=== PATIENT | female | born 1975 | race Caucasian/White ===

== ENCOUNTER → 2020-04-01 16:00 | Outpatient (CLI) | payer OTHER, SELFPAY ==
--- NOTE | ~2020-04-01 | MM_ITS ---
EXAMINATION: MM screening [facility] BI w jodee HISTORY: Screening mammogram TECHNIQUE: Craniocaudal and mediolateral oblique 3-D tomosynthesis images were obtained and synthetic 2-D images were generated. CAD analysis was submitted and interpreted. COMPARISON: 01/25/2019, 12/10/2016, 10/15/2014 BREAST PARENCHYMAL COMPOSITION: There are scattered areas of fibroglandular density. FINDINGS: There is no evidence of suspicious mass, calcification, or architectural distortion to sugg est malignancy in either breast. There has been no suspicious interval change. IMPRESSION: 1. No mammographic evidence of malignancy. 2. Recommend routine screening mammography in one year. BI-RADS Category 1: Negative Reviewed, dictated and finalized at location A. GRINDING MACHINE OPERATOR
== END ==
PROVIDERS: PCP Family Medicine; Visit Provider Obstetrics & Gynecology Gynecology
DX: Z12.31 Encounter for screening mammogram for malignant neoplasm of breast (principal)
CPT/HCPCS: 77063; 77067

== ENCOUNTER → 2021-04-03 07:11 | Outpatient (CLI) | payer OTHER, SELFPAY ==
--- NOTE | ~2021-04-03 | MM_ITS ---
EXAMINATION: MM [facility] w jodee HISTORY: Screening mammogram TECHNIQUE: Craniocaudal and mediolateral oblique 3-D tomosynthesis images were obtained and synthetic 2-D images were generated. Bilateral rotated lateral cc views. CAD analysis was submitted and interp reted. COMPARISON: 04/01/2020, 01/25/2019, 12/10/2016 bilateral screening mammogram examinations BREAST PARENCHYMAL COMPOSITION: There are scattered areas of fibroglandular density. FINDINGS: There is no evidence of suspicious mass, calcification, or architectural distortion to sugg est malignancy in either breast. There has been no suspicious interval change. IMPRESSION: 1. No mammographic evidence of malignancy. 2. Recommend routine screening mammography in one year. BI-RADS Category 1: Negative Reviewed, dictated and finalized at location A. UET PREP COOK
== END ==
PROVIDERS: PCP Family Medicine; Visit Provider Obstetrics & Gynecology Gynecology
DX: Z12.31 Encounter for screening mammogram for malignant neoplasm of breast (principal)
CPT/HCPCS: 77063; 77067

== ENCOUNTER → 2022-04-12 14:54 | Outpatient (CLI) | payer OTHER, SELFPAY ==
--- NOTE | ~2022-04-12 | MM_ITS ---
EXAMINATION: MM screening [facility] w jodee HISTORY: Screening mammogram TECHNIQUE: Craniocaudal, rotated lateral craniocaudal and mediolateral oblique 3-D tomosynthesis imag es were obtained and synthetic 2-D images were generated. CAD analysis was submitted and interpreted. COMPARISON: 04/03/2021, 04/01/2020, 01/25/2019 bilateral screening mammogram examinations BREAST PARENCHYMAL COMPOSITION: There are scattered areas of fibroglandular density. FINDINGS: There is no evidence of suspicious mass, calcification, or architectural distortion to sugg est malignancy in either breast. There has been no suspicious interval change. IMPRESSION: 1. No mammographic evidence of malignancy. 2. Recommend routine screening mammography in one year. BI-RADS Category 1: Negative Reviewed, dictated and finalized at location A. ERY STACKER
== END ==
PROVIDERS: PCP Family Medicine; Visit Provider Obstetrics & Gynecology Gynecology
DX: Z12.31 Encounter for screening mammogram for malignant neoplasm of breast (principal)
CPT/HCPCS: 77063; 77067

== ENCOUNTER → 2023-06-30 07:06 | Outpatient (CLI) | payer OTHER, SELFPAY ==
--- NOTE | ~2023-06-30 | MM_ITS ---
EXAMINATION: MM [facility] w jodee HISTORY: Screening mammogram TECHNIQUE: Craniocaudal and mediolateral oblique 3-D tomosynthesis images were obtained and synthetic 2-D images were generated. CAD analysis was submitted and interpreted. COMPARISON: 04/12/2022, 04/03/2021, 04/01/2020 bilateral screening mammogram examinations BREAST PARENCHYMAL COMPOSITION: There are scattered areas of fibroglandular density. FINDINGS: There is no evidence of suspicious mass, calcification, or architectural distortion to sugg est malignancy in either breast. There has been no suspicious interval change. IMPRESSION: 1. No mammographic evidence of malignancy. 2. Recommend routine screening mammography in one year. BI-RADS Category 1: Negative Reviewed, dictated and finalized at location A. S RIBBON MACHINE OPERATOR
== END ==
PROVIDERS: PCP Obstetrics & Gynecology Gynecology; Visit Provider Obstetrics & Gynecology Gynecology
DX: Z12.31 Encounter for screening mammogram for malignant neoplasm of breast (principal)
CPT/HCPCS: 77063; 77067

== ENCOUNTER 2024-09-13 07:11 | Outpatient (CLI) | payer OTHER, SELFPAY ==
--- NOTE | ~2024-09-13 | MM_ITS ---
EXAMINATION: MM screening [facility] w jodee HISTORY: Screening TECHNIQUE: Craniocaudal and mediolateral oblique 3-D tomosynthesis images were obtained and synthetic 2-D images were generated. CAD analysis was submitted and interpreted. COMPARISON: Comparison to multiple prior studies sequentially, with oldest reviewed study dated 09/2018. BREAST PARENCHYMAL COMPOSITION: Not dense: There are scattered areas of fibroglandular density. FINDINGS: There is developing asymmetry/architectural distortion upper outer quadrant of the left destinee ast. The right breast is stable without evidence for malignancy. IMPRESSION: 1. Developing asymmetry/architectural distortion upper outer quadrant of the left breast. 2. Additional mammographic views and possible breast ultrasound are recommended. BI-RADS Category 0: Incomplete: Needs additional imaging evaluation. Reviewed, dictated and finalized at location A. IMPRESSION: 1. Developing asymmetry/architectural distortion upper outer quadrant of the le ft breast. 2. Additional mammographic views and possible breast ultrasound are recommended . BI-RADS Category 0: Incomplete: Needs additional imaging evaluation.
== END 2024-09-13 07:12 | disposition home or self-care (01) ==
LOC: MICIMG 07:11
PROVIDERS: PCP Family Medicine; Visit Provider Obstetrics & Gynecology Gynecology
DX: Z12.31 Encounter for screening mammogram for malignant neoplasm of breast (principal); R92.8 Other abnormal and inconclusive findings on diagnostic imaging of breast
CPT/HCPCS: 77063; 77067

== ENCOUNTER 2024-10-02 09:12 | Outpatient (CLI) | payer OTHER, SELFPAY ==
--- NOTE | ~2024-10-02 | MMUS_ITS ---
EXAMINATION: MM [facility] LT w jodee, US breast LT limited HISTORY: Left breast asymmetry TECHNIQUE: Additional 3-D tomosynthesis images of the left breast were performed and synthetic 2-D im ages were generated. CAD analysis was submitted and interpreted. High resolution limited left breast ultrasound was performed. COMPARISON: 09/13/2024, 06/30/2023, 04/12/2022 BREAST PARENCHYMAL COMPOSITION:Not Dense. There are scattered areas of fibroglandular density. FINDINGS: MAMMOGRAPHIC FINDINGS: Spot compression views there is a persistent architectural distortion at the upper, outer left breast . This is more pronounced as compared to prior exams. ULTRASOUND: At the 12:00 position left breast, 8 cm from the nipple, there is a 1.8 x 0.8 x 1.6 cm irregular mass , taller than wide. There is an additional adjacent 3 mm more round probable cyst. At the 1:00 positi on, 7 cm from the nipple, there is a 9 x 6 mm irregular probable mass, taller than wide. IMPRESSION: 1.8 x 0 point by 1.6 cm probable irregular mass at the 12 position left breast, 8 cm from the nipple . Additional nearby 9 x 6 mm irregular mass at the 1:00 position, 7 cm in the nipple. These lesions a re suspicious. Ultrasound-guided biopsy both lesions recommended to establish a histologic diagnosis. BI-RADS category 4, suspicious findings. Reviewed, dictated and finalized at location M. IMPRESSION: 1.8 x 0 point by 1.6 cm probable irregular mass at the 12 position left breast , 8 cm from the nipple. Additional nearby 9 x 6 mm irregular mass at the 1:00 p osition, 7 cm in the nipple. These lesions are suspicious. Ultrasound-guided bi opsy both lesions recommended to establish a histologic diagnosis. BI-RADS category 4, suspicious findings.
== END 2024-10-02 09:13 | disposition home or self-care (01) ==
LOC: MICIMG 09:13
PROVIDERS: PCP Family Medicine; Visit Provider Obstetrics & Gynecology Gynecology
DX: R92.8 Other abnormal and inconclusive findings on diagnostic imaging of breast (principal); N63.25 Unspecified lump in the left breast, overlapping quadrants; N63.21 Unspecified lump in the left breast, upper outer quadrant; N63.42 Unspecified lump in left breast, subareolar
CPT/HCPCS: 76642; 77061; 77065; G0279

== ENCOUNTER 2024-12-20 08:23 | Outpatient (CLI) | payer OTHER, SELFPAY ==
--- OUTSIDE RECORDS SUMMARY | 2024-12-20 08:29 | XMS_ITS | Clinical Summary ---
Author Organization [facility] Address [facility] [place] [address] Care Team Providers Care Clinical Documentation Consultant Name Role Phone Kathy Barajas MD Primary Care Provider [phone] Allergies No known active allergies Medications hydroCHLOROthia zide (MICROZIDE) 12.5 MG tablet Take 1 tablet (12.5 mg total) by mouth every morning. Active potassium chloride CR (K-TAB) 10 MEQ Tab CR tablet Take 1 tablet (10 mEq total) by mouth 3 (three) times a week. Active vitamin C (ASCORBIC ACID) 250 MG tablet Take 2 tablets (500 mg total) by mouth daily. Active vitamin D3 (CHOLECALCIFERO L) 25 mcg tablet Take 1 tablet (25 mcg total) by mouth daily. Active Multiple Vitamin (MULTIVITAMIN ADULT OR) Take 1 tablet by mouth daily. Active Glucosamine 500 MG Cap Take 1 tablet by mouth daily. Active NON FORMULARY Take 1 tablet by mouth nightly. control Active HYDROcodone-shira taminophen (NORCO) 5-325 MG tabletIndicatio ns:Acute Pain < 7 Day Supply Take 1 tablet by mouth every 6 (six) hours as needed. Indications: Acute Pain < 7 Day Supply 21 tablet 07/12/2024 Active Active Problems No known active problems Family History Medical History Relation Comments Cancer Father lung No Known Problems Mother Diabetes Paternal Grandmother Relation Status Comments Father Mother Paternal Grandmother Social History Tobacco Use Types Packs/Day Years Used Date Smoking Tobacco: Never Smokeless Tobacco: Never Tobacco Cessation:Counseling Given: Not Answered Alcohol Use Standard Drinks/Week Comments Not Currently 0 (1 standard drink = 0.6 oz pur e alcohol) maybe twice a month Comments No Sex and Gender Information Value Date Recorded Sex Assigned at Female 07/12/2024 9:51 AM GEOTHERMAL POWERPLANT MECHANIC Legal Sex Female 5:23 PM CDT Gender Identity Not on file Sexual Orientation Not on file Last Filed Vital Signs Vital Sign Reading Time Taken Comments Blood Pressure 128/91 07/12/2024 3:15 PM GEOTHERMAL POWERPLANT MECHANIC Pulse 90 07/12/2024 3:15 PM GEOTHERMAL POWERPLANT MECHANIC Temperature 37.2 C (98.9 F) 07/12/2024 3:15 PM GEOTHERMAL POWERPLANT MECHANIC Respiratory Rate 16 07/12/2024 3:15 PM GEOTHERMAL POWERPLANT MECHANIC Oxygen Saturation 98% 07/12/2024 3:15 PM GEOTHERMAL POWERPLANT MECHANIC Inhaled Oxygen Concentration - - Weight 88 kg (194 lb 0.1 oz) 07/12/2024 10:44 AM GEOTHERMAL POWERPLANT MECHANIC Height 168.9 cm (5' 6.5) 07/12/2024 10:44 AM CS T Body Mass Index 30.84 07/12/2024 10:44 AM GEOTHERMAL POWERPLANT MECHANIC Plan of Treatment Health Maintenance Due Date Last Done Comments Cervical Cancer Screening Pap Smear (Age 30 to 64) Every 3 Years 1973 Colorectal Cancer Screening Colonoscopy (10 Years) 1973 Annual Physical 1976 Hepatitis C 10/11/1991 DTaP, Tdap and Td Vaccines (1 - Tdap) 1992 Hepatitis B Vaccines (1 of 3 - 19+ 3-dose series) 1992 Cervical Cancer Screening Pap with HPV Testing (Age 30 to 64) Every 5 Years 10/11/2003 Cervical Cancer Screening with HPV 10/11/2003 Mammogram Screening 2013 Pneumococcal Vaccine: 50+ Years (1 of 1 - PCV) 10/11/2023 Zoster Vaccines (2 of 2) 04/27/2024 03/02/2024 COVID-19 Vaccine Completed 03/02/2024, 11/2021, 04/17/2021, Additional history exists Meningococcal B Vaccine Aged Out No l onger eligible based on patient's age to complete this topic Meningococcal Vaccine Aged Out No viji jeanie eligible based on patient's age to complete this topic RSV Immunizations Under 20 Months Aged Out No longer eligible based on patient's age to complete this topic Medical Devices Implanted Type Area Banking Services Advisor Device Identifier Shelf Expiration Date Model / Serial / Lot Viaflow Implanted:Qty: 1 on 07/12/2024 by Judson Jean DPM at [facility] Graft Left: Foot 11/03/2028 [id number] / [id number] / [id number] Asnis Screw Implanted:Qty: 1 on 07/12/2024 by Judson Jean, DPM at [facility] Screw Left: Foot [employer] [id number] / / Easyclip Osteosynthesis Compression Staple Implanted:Qty: 1 on 07/12/2024 by Judson Jean DPM at [facility] Staple Left: Foot [employer]NY CAROLINE 01/20/2029 [id number] / / [id number] Easyclip Osteosynthesis Compression Staple Implanted:Qty: 1 on 07/12/2024 by Judson Jean DPM at [facility] Staple Left: Foot [employer] CAROLINE 01/20/2029 [id number] / / [id number] Plantar Plate Repair Implant Set Implanted:Qty: 1 on 07/12/2024 by Judson Jean DPM at [facility] Left: Foot [employer] [id number] 04/11/2029 [id number] / / [id number] Insurance Care Teams Clinical Documentation Consultant Relationship Specialty Start Date End Date Kathy Barajas MD PCP - General 10/15/14
--- OUTSIDE RECORDS SUMMARY | 2024-12-20 08:30 | XMS_ITS | Patient Health Record ---
Author Organization [facility] Address [address] [place], [place] [id number] Care Team Providers Care Cotton Tier Name Role Phone SORAYA IRAHETA Unavailable [phone] Kathy Barajas Unavailable Unavailable Allergies No Known Allergies Reason For Referral Reason [facility] SURGERY AUTHORIZ ATION / [id number] / [id number] / [id number]/ DR. IRAHETA / [facility] Diagnosis 1 Hallux valgus (acqui red), left foot (M20.12) Diagnosis 2 Sprain of metatarsop halangeal joint of left great toe, initial encounter (S93.522A) Diagnosis 3 Left foot pain (M79. 672) [facility] Referred Provider SORAYA IRAHETA Referred Address [address],[place], [id number], Referred Provider Specialty Podiatry Referral Priority Routine Immunizations Vaccine Route Administration Date Status Comme nts Influenza, high dose seasonal Unknown 03/22/2023 Admini stered Vital Signs Height-cm 170.18 cm 08/31/2024 Weight-kg 81.65 kg 08/31/2024 Height 67.00 in 08/31/2024 Weight 180 lbs 08/31/2024 BMI 28.19 kg/m2 08/31/2024 Encounters Encounter Location Date Provider Diagnosis [address] [id number] 07/12/2024 SORAYA IRAHETA [facility] [address] [facility] [address] [place], [place] [id number] 01/13/2024 SORAYA WHITTENBURG Tendinitis of left f oot M77.52 ; Hallux valgus (acquired), left foot M20.12 ; Metatarsalgia of left foot M77.42 and Left foot pain M79.672 [facility] [address] [place], [place] [id number] 02/17/2024 SORAYA WHITTENBURG Tendinitis of left f oot M77.52 ; Hallux valgus (acquired), left foot M20.12 ; Metatarsalgia of left foot M77.42 and Left foot pain M79.672 [facility] [address] [place], [place] [id number] 03/02/2024 SORAYA WHITTENBURG Tendinitis of left f oot M77.52 ; Lesion of plantar nerve, 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 ; Hallux valgus (acquired), left foot M20.12 ; Metatarsalgia of left foot M77.42 ; Left foot pain M79.672 and Pain in right foot M79.671 [facility] [address] [place], [place] [id number] 03/30/2024 SORAYA [place]ITTEN[place]G Tendinitis of left f oot M77.52 ; Lesion of plantar nerve, 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 ; Hallux valgus (acquired), left foot M20.12 ; Metatarsalgia of left foot M77.42 ; Left foot pain M79.672 and Pain in right foot M79.671 [facility] [address] [place], [place] [id number] 05/04/2024 SORAYA WHITTENBURG Tendinitis of left f oot M77.52 ; Lesion of plantar nerve, 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 ; Hallux valgus (acquired), left foot M20.12 ; Metatarsalgia of left foot M77.42 ; Left foot pain M79.672 and Pain in right foot M79.671 [facility] [place] [address] [place], [place] [id number] 05/24/2024 SORAYA WHITTENBURG Tendinitis of left f oot M77.52 ; Lesion of plantar nerve, 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 ; Sprain of metatarsophalangeal joint of left great toe, initial encounter S93.522A ; Hallux valgus (acquired), left foot M20.12 ; Metatarsalgia of left foot M77.42 and Left foot pain M79.672 [facility] [address] [place], [place] [id number] 06/15/2024 SORAYA IRAHETA Lesion of plantar ne rve, 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 ; Dislocation of metatarsophalangeal joint of left lesser toe(s), initial encounter S93.125A ; Tendinitis of left foot M77.52 ; Hallux valgus (acquired), left foot M20.12 ; Metatarsalgia of left foot M77.42 and Left foot pain M79.672 [facility] [address] [place], [place] [id number] 07/20/2024 SORAYA MYRTLE Hallux valgus (acqui red), left foot M20.12 ; Left foot pain M79.672 and Encounter for other specified surgical aftercare Z48.89 [facility] [address] [place], [place] [id number] 08/03/2024 SORAYA MYRTLE Hallux valgus (acqui red), left foot M20.12 ; Left foot pain M79.672 and Encounter for other specified surgical aftercare Z48.89 [facility] [address] [place], [place] [id number] 08/31/2024 SORAYASONI VARGASJCARLOS Hallux valgus (acqui red), left foot M20.12 ; Left foot pain M79.672 and Encounter for other specified surgical aftercare Z48.89 [facility] [place] [address] [place], [place] [id number] 10/04/2024 SORAYA IRAHETA Hammer toe of left f oot M20.42 ; Hallux valgus (acquired), left foot M20.12 ; Pain in right foot M79.671 and Encounter for other specified surgical aftercare Z48.89 [facility] [address] [place], [place] [id number] 04/17/2024 SORAYA IRAHETA [facility] [address] [place], [place] [id number] 05/24/2024 SORAYA IRAHETA Assessments Encounter Date Diagnosis (ICD Code) Assessment Notes Treatment Notes Treatment Clinical Notes Section Notes 01/13/2024 Hallux valgus (acquired), left foot (ICD-10 - M20.12) 01/13/2024 Tendinitis of left foot (ICD-10 - M77.52) 02/17/2024 Tendinitis of left foot (ICD-10 - M77.52) 03/02/2024 Lesion of plantar nerve, left lower limb (ICD-10 - G57.62) 03/02/2024 Tendinitis of left foot (ICD-10 - M77.52) Orthotic casting: The patient was casted for functional orthotic devices. This was done in the subtalar joint neutral position in a non-weightbearin g fashion. The patient will follow-up in 3 weeks time to be dispensed and fitted with the devices. 03/30/2024 Tendinitis of left foot (ICD-10 - M77.52) 05/04/2024 Tendinitis of left foot (ICD-10 - M77.52) 05/24/2024 Lesion of plantar nerve, left lower limb (ICD-10 - G57.62) 05/24/2024 Tendinitis of left foot (ICD-10 - M77.52) 06/15/2024 Lesion of plantar nerve, left lower limb (ICD-10 - G57.62) 06/15/2024 Dislocation of metatarsophalangeal joint of left lesser toe(s), initial encounter (ICD-10 - S93.125A) 07/20/2024 Hallux valgus (acquired), left foot (ICD-10 - M20.12) 07/20/2024 Left foot pain (ICD- 10 - M79.672) 08/03/2024 Hallux valgus (acquired), left foot (ICD-10 - M20.12) 08/31/2024 Hallux valgus (acquired), left foot (ICD-10 - M20.12) 10/04/2024 Hallux valgus (acquired), left foot (ICD-10 - M20.12) 10/04/2024 Hammer toe of left foot (ICD-10 - M20.42) 08/31/2024 Left foot pain (ICD- 10 - M79.672) 10/04/2024 Pain in right foot (ICD-10 - M79.671) 06/15/2024 Tendinitis of left foot (ICD-10 - M77.52) 08/03/2024 Left foot pain (ICD- 10 - M79.672) 07/20/2024 Encounter for other specified surgical aftercare (ICD-10 - Z48.89) 05/24/2024 Sprain of metatarsophalangeal joint of left great toe, initial encounter (ICD-10 - S93.522A) 05/04/2024 Lesion of plantar nerve, left lower limb (ICD-10 - G57.62) 03/30/2024 Lesion of plantar nerve, left lower limb (ICD-10 - G57.62) 01/13/2024 Metatarsalgia of lef t foot (ICD-10 - M77.42) 03/02/2024 Hallux valgus (acquired), left foot (ICD-10 - M20.12) 02/17/2024 Hallux valgus (acquired), left foot (ICD-10 - M20.12) 01/13/2024 Left foot pain (ICD- 10 - M79.672) 02/17/2024 Metatarsalgia of lef t foot (ICD-10 - M77.42) Following skin prep, a total of 3 ccs of a 1-1-1 mix of 0.5% marcaine plain, Kenalog, and dexamethasone sodium phosphate was injected into the patients left 2nd interspace 03/02/2024 Metatarsalgia of lef t foot (ICD-10 - M77.42) 03/30/2024 Hallux valgus (acquired), left foot (ICD-10 - M20.12) Surgical correction was discussed. The patient opted not to proceed at this time. 05/04/2024 Hallux valgus (acquired), left foot (ICD-10 - M20.12) 05/24/2024 Hallux valgus (acquired), left foot (ICD-10 - M20.12) 06/15/2024 Hallux valgus (acquired), left foot (ICD-10 - M20.12) 08/03/2024 Encounter for other specified surgical aftercare (ICD-10 - Z48.89) 10/04/2024 Encounter for other specified surgical aftercare (ICD-10 - Z48.89) 08/31/2024 Encounter for other specified surgical aftercare (ICD-10 - Z48.89) 05/24/2024 Metatarsalgia of lef t foot (ICD-10 - M77.42) 06/15/2024 Metatarsalgia of lef t foot (ICD-10 - M77.42) 03/30/2024 Metatarsalgia of lef t foot (ICD-10 - M77.42) 05/04/2024 Metatarsalgia of lef t foot (ICD-10 - M77.42) Following skin prep, a total of 3 ccs of a 1-1-1 mix of 0.5% marcaine plain, Kenalog, and dexamethasone sodium phosphate was injected into the patients left 2nd MPJ 03/02/2024 Left foot pain (ICD- 10 - M79.672) 02/17/2024 Left foot pain (ICD- 10 - M79.672) 03/02/2024 Pain in right foot (ICD-10 - M79.671) 05/04/2024 Left foot pain (ICD- 10 - M79.672) 03/30/2024 Left foot pain (ICD- 10 - M79.672) 06/15/2024 Left foot pain (ICD- 10 - M79.672) 05/24/2024 Left foot pain (ICD- 10 - M79.672) 05/04/2024 Pain in right foot (ICD-10 - M79.671) 03/30/2024 Pain in right foot (ICD-10 - M79.671) 01/13/2024 Other Orthotic Powerstep: Powerstep OTC orthotics were dispensed. Orthotic recommendation: Custom orthotics were recommended. 02/17/2024 Other Orthotic recommendation: Custom orthotics were recommended. 03/30/2024 Other Orthotic dispense: The orthotic devices were dispensed and fitted. It was noted that the orthotic conformed well to the patients foot in the subtalar joint neutral position. 05/24/2024 Other Advised pt that surgical correction may be necessary. Dispensed Darco toe alignent splint. Dispense: A cam walker was fitted and dispensed. The patient was instructed in its use. 06/15/2024 Other We discussed both conservative and surgical treatment options. We discussed the intra-operative and post-operative treatment course. We discussed the risks and complications including, but not limited to: pain, infection, swelling, numbness, under-correction , over-correction, stiffness, no improvement, and need for further surgery. No guarantees were given, nor implied. Questions encouraged and answered. Consent reviewed and placed in chart. The following procedures are proposed - Correction of bunion, plantar plate repair, left 07/20/2024 Other Dressing Change : The old dressing was removed. Utilizing aseptic technique, a new sterile compression dressing was applied. Patient was instructed to keep it dry and not remove it. 08/03/2024 Other May start walking in the cam walker Suture Removal: The sutures were removed. 08/31/2024 Other Shoes: Patient may return to normal shoes as tolerated. 10/04/2024 Other Normal activities: Patient may return to normal activities as tolerated. Plan Of Treatment No Information Insurance Providers Payer Name Payer Address Payer Phone Subscriber Number Group Number Insured Name Patient Relationship to Insured Coverage Start Date Coverage End Date [employer] [address] [place], [place] [id number] CHUCK RITCHIE Self - patient is the insured
--- OUTSIDE RECORDS SUMMARY | 2024-12-20 08:30 | XMS_ITS | Clinical Summary ---
Author Organization [facility] Nathan Marrero Address [address] [place] [address] Care Team Providers Care Automotive Design Drafter Name Role Phone Unavailable Primary Care Provider Unavailabl e Allergies No known active allergies Medications potassium CHLORIDE (MICRO-K EXTENCAPS) 10 mEq Extended Release capsule 10/23/2024 Act shelby hydroCHLOROthiaz susanne 12.5 mg tablet Take 12.5 mg by mouth. Active Active Problems No known active problems Encounters Date Type Department Care Team Description 12/05/2024 External Device Data STL ABSTRACTION Provider, Abstract 12/04/2024 External Device Data STL ABSTRACTION Provider, Abstract 11/27/2024 External Device Data STL ABSTRACTION Provider, Abstract 11/27/2024 External Device Data STL ABSTRACTION Provider, Abstract 11/27/2024 External Device Data STL ABSTRACTION Provider, Abstract 11/20/2024 10:30 AM CDT Office Visit [facility] Oncology and Hematology - [place] [address] [place] [address] Dutch Toure MD Malignant neoplasm of left breast in female, estrogen receptor positive, unspecified site of breast (CMS/HCC) (Primary Dx) from Last 3 Months Family History Medical History Relation Name Comments No Known Problems Brother No Known Problems Child 1 No Known Problems Child 2 Lung Cancer Father No Known Problems Mother No Known Problems Sister Relation Name Status Comments Brother Alive Child 1 Alive Child 2 Alive Father Mother Alive Sister Alive Social History Tobacco Use Types Packs/Day Years Used Date Smoking Tobacco: Never Smokeless Tobacco: Never Alcohol Use Standard Drinks/Week Comments Yes 0 (1 standard drink = 0.6 oz pur e alcohol) occasional Comments Unknown Sex and Gender Information Value Date Recorded Sex Assigned at Not on file Legal Sex Female 2:24 PM CDT Gender Identity Not on file Sexual Orientation Not on file Last Filed Vital Signs Vital Sign Reading Time Taken Comments Blood Pressure 132/79 11/20/2024 10:27 AM CDT Pulse 70 11/20/2024 10:27 AM CDT Temperature 36.8 C (98.2 F) 11/20/2024 10:27 AM CDT Respiratory Rate 16 11/20/2024 10:27 AM CDT Oxygen Saturation 93% 11/20/2024 10:27 AM CDT Inhaled Oxygen Concentration - - Weight 89 kg (196 lb 3.2 oz) 11/20/2024 10:27 AM CDT Height 167.6 cm (5' 6) 11/20/2024 10:27 AM CDT Body Mass Index 31.67 11/20/2024 10:27 AM CDT Plan of Treatment Upcoming Encounters Date Type Department Care Team (Late st Contact Info) Description 01/04/2025 9:00 AM CDT Office Visit [facility] Oncology and Hematology - [place] [address] [facility] [address] [place] [address] Dutch Toure MD [address] [facility] [address] [place] [address] Health Maintenance Due Date Last Done Comments Pre-Diabetes and Diabetes Screening 1973 DTAP/TDAP/TD VACCINES (1 - Tdap) 1992 HEPATITIS B VACCINES (1 of 3 - 19+ 3-dose series) 09/21 HPV/Cotest (21-29) 1994 CERVICAL CANCER SCREENING 10/11/2003 HPV/Cotest (30-65) 10/11/2003 PAP SMEAR 10/11/2003 BREAST CANCER SCREENING 2013 COLORECTAL SCREENING 2018 Colorectal Cancer Screening 2018 FIT-DNA Q 3 years 2018 FIT/FOBT Q 1 year 2018 Flex Sig/CT Colonography Q 5 years 2018 ZOSTER VACCINE (1 of 2) 10/11/2023 INFLUENZA VACCINE (#1) 2024 03/22/2023 Insurance
--- NOTE | 2024-12-20 08:42 | ECG_ITS ---
Test Date: 2024-12-20 08:59:57 Measurements Intervals [place] Rate: 71 P: 22 WV: 165 QRS: -9 QRSD: 89 T: 4 QT: 389 QTc: 425 Interpretive Statements SINUS RHYTHM BORDERLINE R WAVE PROGRESSION, ANTERIOR LEADS BORDERLINE T WAVE ABNORMALITY- ANTEROLAT/INF LEADS BASELINE ARTIFACT- I, II, III, AVR, AVL, AVF, V1-V6 BORDERLINE ECG No previous ECG available for comparison Electronically Signed On 12-21-2024 06:24:49 CDT by Francesco Rouse D.O.
[2024-12-20 09:08] LABS: Hematocrit 40.1 % (37.0-47.0); Hemoglobin 13.1 g/dL (12.0-15.0)
[2024-12-20 09:31] LABS: Anion Gap 7 mmol/L (4-12); Blood Urea Nitrogen 15 mg/dL (7-17); Calcium 9.9 mg/dL (8.4-10.2); Carbon Dioxide 29 mmol/L (22-30); Chloride 104 mmol/L (98-107); Estimated Glomerular Filt Rate > 60; Glucose 84 mg/dL (65-110); Potassium 4.2 mmol/L (3.4-5.0); Sodium 140 mmol/L (137-145)
== END 2024-12-20 08:24 | disposition home or self-care (01) ==
LOC: ANHSURGERY 08:26
PROVIDERS: Anesthesiology; PCP Family Medicine; Visit Provider Surgery
DX: Z01.818 Encounter for other preprocedural examination (principal); I10 Essential (primary) hypertension; D49.3 Neoplasm of unspecified behavior of breast; Z79.899 Other long term (current) drug therapy
CPT/HCPCS: 36415; 80048; 85014; 85018; 86850; 86900; 86901; 93005

== ENCOUNTER 2024-12-25 00:25 | Day surgery (SDC) | payer OTHER, SELFPAY ==
[2024-12-18 13:09] VITALS: BMI 30.6
--- NOTE | 2024-12-18 13:09 | PC.NURSE ---
Report to the Outpatient Waiting Room, entrance under the green pavilion located off [facility], at time _0600_ on date _[id number]_. Planned Procedure Time: _0730_.? Time changes happen often and if your time is changed the preop area will call you the afternoon before. - You and your visitor will be asked to self-screen and do not enter if you have any COVID symptoms. Please call surgeon if you need to reschedule. - A mask is optional within the hospital at this time. - No food or drink from midnight until time of surgery and no smoking, or chewing tobacco (or any form of nicotine). No chewing gum, candy or mints. Take only the following medications with a SIP of water on the morning of surgery: ___None____ DO NOT STOP ANY OF YOUR OTHER PRESCRIPTION MEDICATIONS PRIOR TO SURGERY EXCEPT THE FOLLOWING Hold all vitamins and supplements for 3 days per anesthesiologist. Medications to discontinue per physician Date to take last dose Please no make-up, nail spanish, hairspray, perfume, deodorant, or body powder the day of surgery.? No jewelry (including any body piercings) or valuables the day of surgery, leave them at home.? Please take a shower or bath the night before, or the morning of, surgery with an antibacterial soap.? Wear comfortable, loose fitting clothing.? - Jewelry must be removed prior to entering the operating room.? Rings and piercings that are not removed may be cut off. - The hospital will not accept responsibility for valuables.? - Please leave all valuables, including medications, at home the day of surgery. If you are going home after surgery, a licensed chain saw driver must drive you home.? - NO public transportation without another adult if you receive anesthesia. - We recommend that an adult stay with you for 24 hours following discharge. - We also recommend that you do not drive, make important decision, drink alcoholic beverages, or take any drugs that were not prescribed by your health care provider for at least 24 hours after your discharge time. Follow any additional instructions given to you from your surgeon. Telephone instructions given to __Kim___and asked if any additional questions and then verbalized understanding. Patient advised to call surgeon office or pre surgery nurse liaison [phone] if any additional questions.
[2024-12-25] VITALS (11 sets, daily range): BP systolic 111–137; BP diastolic 60–80; PULSE 52–77; RESP 12–16; TEMP 36.3–37.4; O2SAT 99–100
--- NOTE | ~2024-12-25 | NM_ITS ---
EXAMINATION: SENTINEL NODE INJECTION ONLY DATE: 12/25/2024 8:40 CDT INDICATION: Left breast cancer TECHNIQUE: 1 mCi Tc-99m sulfur colloid was injected along the upper outer aspect of the left nipple. The procedure was performed by Dr. Rivera. IMPRESSION: 1. Status post left breast injection of Technetium 99M sulfur colloid for purpose of sentinel lymph node biopsy. Reviewed, dictated and finalized at location A. IMPRESSION: 1. Status post left breast injection of Technetium 99M sulfur colloid for purp ose of sentinel lymph node biopsy.
--- OUTSIDE RECORDS SUMMARY | 2024-12-25 00:28 | XMS_ITS | Clinical Summary ---
Author Organization [facility] Address [address] [place] [address] Care Team Providers Care Cloth Colors Examiner Name Role Phone Kathy Barajas MD Primary Care Provider [phone] Allergies No known active allergies Medications hydroCHLOROthia [...] Sex Assigned at Female 07/12/2024 9:51 AM FRANCHISE SALES MANAGER Legal Sex Female 5:23 PM CDT Gender Identity Not on file Sexual Orientation Not on file Last Filed Vital Signs Vital Sign Reading Time Taken Comments Blood Pressure 128/91 07/12/2024 3:15 PM FRANCHISE SALES MANAGER Pulse 90 07/12/2024 3:15 PM FRANCHISE SALES MANAGER Temperature 37.2 C (98.9 F) 07/12/2024 3:15 PM FRANCHISE SALES MANAGER Respiratory Rate 16 07/12/2024 3:15 PM FRANCHISE SALES MANAGER Oxygen Saturation 98% 07/12/2024 3:15 PM FRANCHISE SALES MANAGER Inhaled Oxygen Concentration - - Weight 88 kg (194 lb 0.1 oz) 07/12/2024 10:44 AM FRANCHISE SALES MANAGER Height 168.9 cm (5' 6.5) 07/12/2024 10:44 AM CS T Body Mass Index 30.84 07/12/2024 10:44 AM FRANCHISE SALES MANAGER Plan of Treatment Health Maintenance Due Date [...] this topic Medical Devices Implanted Type Area Milk Tanker Driver Device Identifier Shelf Expiration Date Model / Serial / Lot Viaflow Implanted:Qty: 1 on 07/12/2024 by Judson Jean DPM at [facility] Graft Left: Foot 11/03/2028 [id number] / [id number] / [id number] Asnis Screw Implanted:Qty: 1 on 07/12/2024 by Judson Jean, DPM at [facility] Screw Left: Foot [employer] [id number] / / Easyclip Osteosynthesis Compression Staple Implanted:Qty: 1 on 07/12/2024 by Judson Jean DPM at [facility] Staple Left: Foot [employer] CAROLINE 01/20/2029 [id number] / / [id number] Easyclip Osteosynthesis Compression Staple Implanted:Qty: 1 on 07/12/2024 by Judson Jean DPM at [facility] Staple Left: Foot [employer] CAROLINE 01/20/2029 [id number] / / [id number] Plantar Plate Repair Implant Set Implanted:Qty: 1 on 07/12/2024 by Judson Jean DPM at [facility] Left: Foot [employer] [id number] 04/11/2029 [id number] / / [id number] Insurance Care Teams Cloth Colors Examiner Relationship Specialty Start Date End Date Kathy Barajas MD PCP - General 10/15/14
--- OUTSIDE RECORDS SUMMARY | 2024-12-25 00:29 | XMS_ITS | Patient Health Record ---
Author Organization [facility] Address [address] [place], [place] [id number] Care Team Providers Care Senior Microsoft Consultant Name Role Phone SORAYA IRAHETA Unavailable [phone] Kathy Barajas Unavailable Unavailable Allergies No Known Allergies Reason For Referral Reason [facility] SURGERY AUTHORIZ ATION / 54086 / [id number] / [id number]/ DR. IRAHETA / [facility] Diagnosis 1 Hallux valgus (acqui red), left foot (M20.12) Diagnosis 2 Sprain of metatarsop halangeal joint of left great toe, initial encounter (S93.522A) Diagnosis 3 Left foot pain (M79. 672) [facility] Referred Provider SORAYA IRAHETA Referred Address [address],[place], [id number], Referred Provider Specialty Podiatry Referral Priority Routine Immunizations Vaccine Route Administration Date Status Comme nts Influenza, high dose seasonal Unknown 03/22/2023 Admini stered Vital Signs Height-cm 170.18 cm 08/31/2024 Weight-kg 81.65 kg 08/31/2024 Height 67.00 in 08/31/2024 Weight 180 lbs 08/31/2024 BMI 28.19 kg/m2 08/31/2024 Encounters Encounter Location Date Provider Diagnosis [address] [id number] 07/12/2024 SORAYA IRAHETA [facility] [address] [facility] [address] [place], [place] [id number] 01/13/2024 SORAYA WHITTENBURG Tendinitis of left f oot M77.52 ; Hallux valgus (acquired), left foot M20.12 ; Metatarsalgia of left foot M77.42 and Left foot pain M79.672 [facility] [address] [place], [place] [id number] 02/17/2024 SORAYA WHITTENBURG Tendinitis of left f oot M77.52 ; Hallux valgus (acquired), left foot M20.12 ; Metatarsalgia of left foot M77.42 and Left foot pain M79.672 [facility] [address] [place], [place] [id number] 03/02/2024 SORAYA WHITTENBURG Tendinitis of left f oot M77.52 ; Lesion of plantar nerve, 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 ; Hallux valgus (acquired), left foot M20.12 ; Metatarsalgia of left foot M77.42 ; Left foot pain M79.672 and Pain in right foot M79.671 [facility] [address] [place], [place] [id number] 03/30/2024 SORAYA WHITTENBURG Tendinitis of left f oot M77.52 ; Lesion of plantar nerve, 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 ; Hallux valgus (acquired), left foot M20.12 ; Metatarsalgia of left foot M77.42 ; Left foot pain M79.672 and Pain in right foot M79.671 [facility] [address] [place], [place] [id number] 05/04/2024 SORAYA WHITTENBURG Tendinitis of left f oot M77.52 ; Lesion of plantar nerve, 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 ; Hallux valgus (acquired), left foot M20.12 ; Metatarsalgia of left foot M77.42 ; Left foot pain M79.672 and Pain in right foot M79.671 [facility] [place] [address] [place], [place] [id number] 05/24/2024 SORAYA WHITTENBURG Tendinitis of left f oot M77.52 ; Lesion of plantar nerve, 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 ; Sprain of metatarsophalangeal joint of left great toe, initial encounter S93.522A ; Hallux valgus (acquired), left foot M20.12 ; Metatarsalgia of left foot M77.42 and Left foot pain M79.672 [facility] [address] [place], [place] [id number] 06/15/2024 SORAYA IRAHETA Lesion of plantar ne rve, 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 ; Dislocation of metatarsophalangeal joint of left lesser toe(s), initial encounter S93.125A ; Tendinitis of left foot M77.52 ; Hallux valgus (acquired), left foot M20.12 ; Metatarsalgia of left foot M77.42 and Left foot pain M79.672 [facility] [address] [place], [place] [id number] 07/20/2024 SORAYA MYRTLE Hallux valgus (acqui red), left foot M20.12 ; Left foot pain M79.672 and Encounter for other specified surgical aftercare Z48.89 [facility] [address] [place], [place] [id number] 08/03/2024 SORAYA MYRTLE Hallux valgus (acqui red), left foot M20.12 ; Left foot pain M79.672 and Encounter for other specified surgical aftercare Z48.89 [facility] [address] [place], [place] [id number] 08/31/2024 SORAYASONI VARGASJCARLOS Hallux valgus (acqui red), left foot M20.12 ; Left foot pain M79.672 and Encounter for other specified surgical aftercare Z48.89 [facility] [place] [address] [place], [place] [id number] 10/04/2024 SORAYA IRAHETA Hammer toe of left f oot M20.42 ; Hallux valgus (acquired), left foot M20.12 ; Pain in right foot M79.671 and Encounter for other specified surgical aftercare Z48.89 [facility] [address] [place], [place] [id number] 04/17/2024 SORAYA IRAHETA [facility] [address] [place], [place] [id number] 05/24/2024 SORAYA IRAHETA Assessments Encounter Date Diagnosis [...] Insured Coverage Start Date Coverage End Date [id number] [address] [place], [place] [id number] CHUCK RITCHIE Self - patient is the insured
--- OUTSIDE RECORDS SUMMARY | 2024-12-25 00:29 | XMS_ITS | Clinical Summary ---
Author Organization [facility] Nathan Marrero Address [address] [place] [address] Care Team Providers Care Doorkeeper Name Role Phone Unavailable Primary Care Provider [...] Abstract 11/20/2024 10:30 AM CDT Office Visit [facility] Oncology and Hematology - [place] [address] [place] [address] Dutch Toure MD Malignant neoplasm [...] Description 01/04/2025 9:00 AM CDT Office Visit [facility] Oncology and Hematology - [place] [address] [facility] [address] [place] [address] Dutch Toure MD [address] [facility] [address] [place] [address] Health Maintenance Due Date Last [...]
[2024-12-25] MEDS: LIDOCAINE/PRILOCAINE CREAM 2.5-2.5% TUBE 1 EACH TOPICAL (06:25)
[2024-12-25] MEDS: ACETAMINOPHEN 500 MG TABLET 1000 MG PO (06:25)
--- NOTE | 2024-12-25 06:55 | WPDHPUPDATE1 ---
History and Physical Update Update Date/Time: 12/25/24 06:55 Patient seen and examined in pre-operative holding area. No interval change in medical history or symptoms. Patient remembers previous discussion of benefits and alternatives to procedure. Continues to desire to proceed with bilateral breast reconstruction with silicone implant and acellular dermal matrix placement at time of mastectomy possible tissue biological technician . I reviewed the risks including but not limited to bleeding ,infection, asymmetry, undesireable cosmetic appearance, partial/total skin loss, no change or worsening of symptoms, change in sensation, device failure, capsular contracture. I discussed the possible use of assistants and their level of participation in the case. Patient stated understanding and signed the consent form wishing to proceed
--- NOTE | 2024-12-25 07:01 | P.PNAN_ITS ---
Anes - Initial Pre Proc Eval Procedure: Operation Date: 12/25/24 07:30 Proposed Procedures p Left Total Mastectomy, Prophylactic Right Total Mastectomy, Left [place] Lymph Node Biopsy with Injection of Lymphoseek and Methylene Blue - Jenny Wise MD s Bilateral Immediate Insertion Of Breast Implants with Alloderm, Possible Bilateral Tissue Plastics Spreading Machine Operator - Alan Olvera MD Date/Time: 12/25/24 07:01 Surgeon: Jenny Wise MD Pre Op Diagnosis: invasive lobular carcinoma left breast Patient Data Age: 49 Gender: F Height: 1.69 m Weight: 88.1 kg Last Vital Signs Temp 37.1 C 12/25/24 06:40 Pulse 77 12/25/24 06:40 Resp 16 12/25/24 06:40 BP 117/67 12/25/24 06:40 Pulse Ox 100 12/25/24 06:40 O2 Del Method Room Air 12/25/24 06:40 Allergies Allergy/AdvReac Type Severity Reaction Status Date / Time No Known Allergies Allergy Verified 12/25/24 06:52 Home Medications ?Medication ?Instructions ?Recorded ?Confirmed ?Type potassium chloride 10 mEq 10 meq PO .three times per week 04/04/24 12/25/24 Rx capsule,extended release #90 caps cyclobenzaprine 10 mg tablet 10 mg PO TID PRN muscle spasm #20 07/04/24 12/18/24 Rx tabs hydrochlorothiazide 12.5 mg tablet 12.5 mg PO DAILY #90 tabs 12/10/24 12/25/24 Rx multivitamin (Daily Multi-Vitamin 1 tablet PO DAILY 12/18/24 12/25/24 History tablet) Patient hx anesthesia problems: none Family hx anesthesia problems: none Results Review: All pre-operative results and documents have been reviewed as part of the pre- operative evaluation. FORMERLY [facility] Past Medical History Medical History (Updated 12/25/24 @ 07:01 by Zeke Lujan MD) Invasive lobular carcinoma of left breast in female Hypertension Bone cyst of shoulder girdle Surgery 2014 Tears of meniscus and anterior cruciate ligament of knee surgical repair 2007 Surgical History Surgical History S/P shoulder surgery S/P ACL surgery Family History Family History Mother Hypertension Father Lung cancer Sibling Cerebrovascular accident Grandparent , paternal grandmother Diabetes mellitus Social History Social History Social History: Caffeine-daily Smoking status: Never smoker Second hand tobacco smoke exposure: No Alcohol intake: current Alcohol use details: social-occasionally Substance use: never Substance use type: does not use Do You Feel Safe in your Home?: Yes Lack of Transportation: No Lack of Food: Never True Current Housing: I Have Housing Concerned About Future Housing: No Difficulty Paying Gas/Electric Bills: No Difficulty Paying for Meds: No Currently Unemployed: No Education: High School Diploma/GED Difficulty w/ Childcare or Family Care: No Living arrangements: with family Gender identity (if verbalized by the patient): Female Sexual Orientation (if Verbalized by the Patient): Straight or Heterosexual Spiritual care concerns: No Agree to blood products: Yes Anes - Eval Final PreProcedure Day of Procedure 12/25/24 07:01 Patient weight: obese Heart: regular rate and rhythm Lungs: clear to auscultation Airway: Mallampati scale class II Neurological: alert and oriented Last oral intake: >/= 8 hours ASA classification: III Emergent: no Anesthetic plan: proceed Anesthesia type and monitoring: general ETT and standard monitoring Results Review: All pre-operative results and documents have been reviewed as part of the pre- operative evaluation. Informed Consent: The patient's anesthetic plan and its attendant risks and benefits were discussed with the patient/family/POA. Questions were solicited and answers provided to the satisfaction of the patient/family/POA.
[2024-12-25] MEDS: SCOPOLAMINE 1 MG PATCH 1 PATCH TRANSDERM (07:03)
--- NOTE | 2024-12-25 07:03 | WPDHPUPDATE1 ---
History and Physical Update Update Date/Time: 12/25/24 07:03 - left total mastectomy, prophylactic right total mastectomy, left sentinel lymph node biopsy, injection of Lymphoseek and methylene blue for sentinel lymph node mapping, and immediate reconstruction with Plastic surgery. History and Physical has been reviewed, including an updated exam of the patient. There are NO changes in the patient's condition. Risks, benefits, and alternatives have been discussed and questions answered. Patient agrees to proceed with procedure.
[2024-12-25 07:04] LABS: BEDSIDEPREGUCG Negative (Negative)
[2024-12-25] MEDS: LACTATED RINGERS 1,000 ML 30 ML IV CONT ×3 (07:10→12:31)
--- NOTE | 2024-12-25 07:36 | P.OP_ITS ---
Procedure Note - Detailed Date of Procedure 12/25/24 Pre-op Diagnosis Multicentric invasive lobular carcinoma left breast Post-op Diagnosis Same Procedure Performed 1. Left total mastectomy 2. Right prophylactic mastectomy 3. Attempted Left sentinel lymph node biopsy 4. Injection of lymphoseek and methylene blue Surgeon Jenny Wise MD Anesthesia General Description of Procedure Patient was identified in the preoperative holding area and I performed Lymphoseek injection prior to the OR. Diluted methylene blue 50 50 solution was also injected in the periareolar subdermal plane area for dual tracing. Patient was then brought back to the OR suite and laid supine on the OR table. Sequential compression devices were applied. General anesthesia was induced without difficulty. Bilateral chest area and left axillary region were prepped and draped in a sterile fashion. Attention was then turned to the left axilla. Patient had a previous incisions and scars from remote surgeries and procedures as a child in the axilla and left chest area, and the Neoprobe was used to identify an area of high radio activity in the axilla. A small incision was made overlying this area and dissection was carried down through the subcutaneous tissue. The clavipectoral fascia was encountered and opened. The Neoprobe was again used to scan the axilla and I was able to find an area of high radio activity but I was unable to identify any lymph nodes in the area after thorough and careful dissection. Patient has significant scar tissue in the axilla likely from the previous remote surgery. I palpated the entire axillary area looking for any suspicious nodes or findings and I was unable to identify any suspicious nodes. At this time, the cyst was made to avoid the sentinel lymph node biopsy and proceed with a mastectomy. Attention was then turned to the left breast. Dr. Olvera had already previously marked incisions which included a fish mouth incision encompassing the nipple areola complex, and dissection was then carried out in the thin areolar tissue between the subcutaneous and the breast tissue, superiorly to the? inferior border of the clavicle, medial to the lateral aspect of the sternal border, laterally to the latissimus dorsi, and inferior to the inframammary fold down to the muscle. The? breast tissue along with the pectoralis fascia was then carefully dissected off the pectoralis muscle posteriorly.? Once the entire breast was excised, it was oriented with a short stitch superior and a long stitch lateral and sent to pathology as a fresh specimen. The cavity was irrigated and hemostasis was assured. I again inspected the axillary incision trying to find any lymph nodes in the area of high radio activity, and again I was unable to identify any nodes in area. I proceeded to irrigate the axillary cavity, hemostasis was assured. The clavipectoral fascia was closed with a running 3-0 Vicryl suture. Attention was then turned to the right breast. A similar fish mouth incision was made encompassing the nipple areola complex and dissection was carried down through the subcutaneous tissue into the breast tissue. Dissection was then performed in the thin areolar tissue between the subcutaneous and the breast tissue, superiorly to the? inferior border of the clavicle, medial to the lateral aspect of the sternal border, laterally to the latissimus dorsi, and inferior to the inframammary fold down to the muscle. The? breast tissue along with the pectora lis fascia was then carefully dissected off the pectoralis muscle posteriorly.? Once the entire breast was excised, it was oriented with a short stitch superior and a long stitch lateral and sent to pathology as a fresh specimen. The cavity was irrigated and hemostasis was assured. The case was then turned over to Dr. Olvera for bilateral silicone implant placement, please refer to his proc edure note for further details. All needles, instruments, and sponge counts were correct as reported by the operating room staff. Patient tolerated the procedure well with no immediate complications. Estimated Blood Loss 50 Drains Yes Pathology Yes Complications No immediate complications Condition Stable Disposition PACU [facility] Billing Surgery - Charge Forward: Surgery Billing
[2024-12-25] MEDS: ceFAZolin 2 GM in SODIUM CHLORIDE 0.9% IV 50 ML 100 ML IVPB (07:40)
[2024-12-25] MEDS: NACL 0.9% IRRIG POUR BOTTLE 1,000 ML, GENTAMICIN SULFATE INJ 160 MG, ceFAZolin 2 GM IRRIGATION (08:16)
[2024-12-25] MEDS: METHYLENE BLUE 0.5% INJ 10 ML AMPULE XX (08:18)
[2024-12-25] MEDS: BUPivacaine HCL 0.5% 10 ML AMP 40 ML INFILTRATE (08:41)
--- NOTE | 2024-12-25 09:38 | S_PTH ---
PATIENT: Tracy Alexander LOC: [facility] U#:[id number] AGE/SX: 49/F ROOM: RE12/25/[address]: Jenny Wise MD : 1975 BED: DIS: 12/26/2024 SPEC #: [id number] RECD: 12/25/24 09:47 STATUS: EDGAR REQ #: [id number] TRISTA: 12/25/24 09:[address]: Jenny Wise DEPT: [facility] Surgical RECD BY: Bernard Shanks ENTERED: 12/25/24 09:47 SP TYPE: Surgical OTHR DR: Kathy BarajasMD Tissues: A - Breast Mastectomy B - Breast Tissue C - Breast Mastectomy D - Breast Tissue E - Breast Tissue Procedures: Hematoxylin and Eosin Stain Gross and Microscopic Level 4 Gross and Microscopic Level 5
[2024-12-25] MEDS: LIDO 1%/EPINEPHRINE 1:100,000 50 ML VIAL INFILTRATE (11:32)
--- NOTE | 2024-12-25 12:05 | W.PM.PROC2 ---
Procedure Note - Detailed Date of Procedure 12/25/24 Pre-op Diagnosis invasive lobular carcinoma left breast Post-op Diagnosis Same (acquired absence bilateral breasts and nipple) Procedure Performed immediate bilateral breast reconstruction with silicone implant and adm placement at time of mastectomy with adjacent tissue transfer Surgeon Alan Olvera MD Anesthesia General Description of Procedure Patient was seen in the preoperative holding area where the breasts were marked and consent form was signed. Patient was taken back to the operating room and placed on the table in the supine position. Time-out was performed with Anesthesia, surgeons, and staff a Gram patient's name, site, and surgery to be performed. SCDs were placed on the lower extremities and inflated. Antibiotics were given IV. After general anesthesia was administered the breasts were prepped and draped in the usual sterile fashion. Care was then given to Dr. Wise proceeded with performing the left sentinel lymph node biopsy which is dictated separately. I designed a skin incision to encompass the resection of the nipple-areolar complex and Dr. Wise proceeded with performing the left total mastectomy with my assistance as indicated. This is dictated separately. After completion of the mastectomy I irrigated with antibiotic irrigation. Hemostasis with Bovie cautery. I proceeded with sewing in a piece of large, contoured, perforated AlloDerm along the inframammary fold and anterior axillary line with 2-0 Vicryl suture. I provisionally placed a 450 cc full profile Sizer which while reasonable was smaller than patient's desired reconstructive goals and was noted that patient has significant excess of skin and subcutaneous tissue mostly extending laterally with areas of contour irregularity. I then decided to place a larger implant. I placed a 10 Citizen Of [place] KINGSLEY along the inframammary fold and the on Q pump catheter along superior margin of the breast cavity. I removed the Sizer and irrigated with antibiotic irrigation and confirmed hemostasis Bovie cautery.I prepped the skin with Betadine and placed down new towels. Instruments were rinsed in antibiotic irrigation. Gloves were changed. I proceeded with taking a Natpieroe SCF -520 implant serial number [id number] directly from the package after rinsing it in antibiotic irrigation and placing it in the left breast breast pocket underneath the AlloDerm. Next I proceeded with marking areas for skin resection where proceeded with de epithelialization of both superior and inferior flaps needed to create a large 12x6cm rotation advancement flap to reduce the skin pocket but to maintain volume and contour appropriately. This was done with a combination of 15 blade scalpel and Bovie cautery. These flaps were advanced into place and I proceeded with closure using 3-0 Vicryl suture for dermis and 4-0 Monocryl for subcuticular closure. There was improved contour and definition of the lateral breast sweep upon doing so. The drain was hooked to bulb suction. Attention was taken to the right breast for similar procedure was performed by performing the mastectomy with my assistance as indicated. This is dictated separately. After the right mastectomy was completed I irrigated with antibiotic irrigation and hemostasis with Bovie cautery. I proceeded again with sewing in a piece of large, contoured, perforated AlloDerm along the inframammary fold and anterior axillary line with 2-0 Vicryl suture. I placed my 10 Citizen [place] KINGSLEY drain along the inframammary fold an on Q catheter along the superior aspect of the right breast pocket. I irrigated with antibiotic irrigation and ensured hemostasis with Bovie cautery. Again I prepped the skin with Betadine and placed Down fresh towels. gloves were changed and instruments rinsed in antibiotic irrigation. I took a no other Natpieroe SCF -520 implant serial [id number] directly from the package after rinsing it in antibiotic irrigation and placing it directly in the right breast pocket underneath the AlloDerm in its appropriate orientation. Again there was notable skin excess to both the superior and inferior flaps with areas of contour irregularity. I again proceeded with marking and de epithelializing 11 by 5 cm rotation advancement flaps to address excess skin and to improve and maintain contour. the flaps were advanced and closed with 3-0 Vicryl for dermis and 4-0 Monocryl for subcuticular closure. Again there was improved contour especially for lateral sweep of the breast. There was reasonable shape and symmetry to the left breast. Skin flaps appeared viable with good cap refill. The drains were hooked to bulb suction. I injected 10 cc of 1% lidocaine with epinephrine and 0.5% Marcaine plain into the on Q pump catheters for initial loading bolus dose. A dressing of Mastisol, Steri-Strips, 4 x 4, Tegaderm so, ABDs and a surgical bra was then applied. the on Q pump was attached and running.The patient was awakened from anesthesia and transferred to the recovery room in stable condition. Complications: None estimated blood loss: 5 cc for my portion of the procedure disposition: Patient tolerated the procedure well and will be staying for observation overnight [facility] Billing Surgery - Charge Forward: Surgery Billing ([id number],59 [id number],59 [id number],59 [id number],59 [id number],59 [id number],59 [id number],RT, 59 [id number],LT,59 )
[2024-12-25] MEDS: fentaNYL CITRATE INJ (*CRX) 100 MCG/2 ML VIAL 25 MCG IV PUSH ×7 (12:30→13:15)
--- NOTE | 2024-12-25 13:59 | PC.NURSE ---
This patient, Tracy Alexander, was received from PACU on 12/25/24 at 1359. Patient/family oriented to unit policies and routines
[2024-12-25] MEDS: HYDROcodone/acetaminophen (*CRX) 5-325 MG TABLET 1 TAB PO (14:27)
[2024-12-25] MEDS: LACTATED RINGERS 1,000 ML 100 ML IV CONT (14:28)
[2024-12-25] MEDS: HYDROcodone/acetaminophen (*CRX) 10-325 MG TABLET 1 TAB PO ×2 (16:46→20:41)
[2024-12-25] MEDS: CEPHALEXIN 500 MG CAPSULE PO (20:41)
[2024-12-26 00:17] VITALS: BP 93/66; PULSE 75; RESP 17; TEMP 37.2; O2SAT 96
[2024-12-26] MEDS: HYDROcodone/acetaminophen (*CRX) 10-325 MG TABLET 1 TAB PO ×3 (00:36→08:55)
[2024-12-26 04:25] VITALS: BP 94/54; PULSE 82; RESP 16; TEMP 36.9; O2SAT 96
--- NOTE | 2024-12-26 08:00 | WPDANESPN ---
Anes - Prog Note Post-Op Date/Time: 12/26/24 08:00 Cardiovascular status: normal Respiratory status: normal Airway patency: baseline Mental status: baseline Post-Op hydration status: normal Vital Signs: Last Vital Signs Temp 36.9 C 12/26/24 04:25 Pulse 82 12/26/24 04:25 Resp 16 12/26/24 04:25 BP 94/54 L 12/26/24 04:25 Pulse Ox 96 12/26/24 04:25 O2 Del Method Room Air 12/25/24 14:00 O2 Flow Rate 8 12/25/24 12:35 Pain Score (VAS): 0 I/O: Intake & Output 12/25/24 12/26/24 12/26/24 23:59 07:59 15:59 Output Total 125 75 Balance -125 -75 Post-procedural complaints: none Patient Feedback: Patient satisfied with anesthetic care.
[2024-12-26 08:50] VITALS: BP 104/65; PULSE 67; RESP 16; TEMP 37.3; O2SAT 99
[2024-12-26] MEDS: DOCUSATE SODIUM 100 MG CAPSULE PO (08:56)
[2024-12-26] MEDS: CEPHALEXIN 500 MG CAPSULE PO (08:56)
== END 2024-12-26 12:12 | disposition home or self-care (01) ==
LOC: ANHSURGERY 07:07 → ANHOB2 12-26 12:01 → ANH2MED 12-27 07:37
PROVIDERS: Plastic Surgery; PCP Family Medicine; Visit Provider Surgery
PROC: (CPT 19303; principal; 2024-12-25 07:30)
PROC: (CPT 19340; 2024-12-25 07:30)
DX: C50.812 Malignant neoplasm of overlapping sites of left female breast (principal); I10 Essential (primary) hypertension; E66.9 Obesity, unspecified; Z68.30 Body mass index [BMI] 30.0-30.9, adult; Z17.0 Estrogen receptor positive status [ER+]; Z17.21 Progesterone receptor positive status; Z17.32 Human epidermal growth factor receptor 2 negative status; Z98.890 Other specified postprocedural states; Z80.1 Family history of malignant neoplasm of trachea, bronchus and lung
CPT/HCPCS: 19303; 38525; 38900; 19340; 15777 ×2; 14301 ×2; 38792; 88305; 88307; J0690; A9270; A9520; C1789; J1580; J2003; J2004; J2250; J2405; J2704; J3010; J7120; Q4116; Q9968

== ENCOUNTER → 2025-03-18 11:43 | Outpatient (REF) | payer OTHER, SELFPAY ==
--- NOTE | 2025-03-18 11:43 | S_PTH ---
PATIENT: Tracy Alexander LOC: [facility] #:[id number] AGE/SX: 49/F ROOM: RE03/18/[address]: Alan Olvera MD : 1975 BED: DIS: SPEC #: [id number] RECD: 03/18/25 12:59 STATUS: EDGAR REIssac #: [id number] TRISTA: 03/18/25 11:[address]: Alan Olvera DEPT: [facility] Surgical RECD BY: Britt Thompson ENTERED: 03/18/25 13:01 SP TYPE: Surgical OTHR DR: Darleen Burnham PA-C Tissues: A - Breast Tissue B - Breast Tissue Procedures: Hematoxylin and Eosin Stain Gross and Microscopic Level 4
--- OUTSIDE RECORDS SUMMARY | 2025-03-18 13:23 | XMS_ITS | Clinical Summary ---
Author Organization [facility] Address [facility] [place] [address] Care Team Providers Care Tire Buster Name Role Phone Kathy Barajas MD Primary Care Provider [phone] Allergies No known active allergies Medications hydroCHLOROthia [...] Sex Assigned at Female 07/12/2024 9:51 AM CONSTRUCTION FRAMER Legal Sex Female 5:23 PM CDT Gender Identity Not on file Sexual Orientation Not on file Last Filed Vital Signs Vital Sign Reading Time Taken Comments Blood Pressure 128/91 07/12/2024 3:15 PM CONSTRUCTION FRAMER Pulse 90 07/12/2024 3:15 PM CONSTRUCTION FRAMER Temperature 37.2 C (98.9 F) 07/12/2024 3:15 PM CONSTRUCTION FRAMER Respiratory Rate 16 07/12/2024 3:15 PM CONSTRUCTION FRAMER Oxygen Saturation 98% 07/12/2024 3:15 PM CONSTRUCTION FRAMER Inhaled Oxygen Concentration - - Weight 88 kg (194 lb 0.1 oz) 07/12/2024 10:44 AM CONSTRUCTION FRAMER Height 168.9 cm (5' 6.5) 07/12/2024 10:44 AM CS T Body Mass Index 30.84 07/12/2024 10:44 AM CONSTRUCTION FRAMER Plan of Treatment Health Maintenance Due Date [...] (2 of 2) 04/27/2024 03/02/2024 COVID-19 Vaccine ( season) 2025 03/02/2024, 04/28/2022, 04/17/2021, Additional history exists Influenza Adult (#1) 2025 03/02/2024, 02/05/2023, 02/22/2021, Additional history exists Hepatitis A Vaccines Aged Out No long er eligible based on patient's age to complete this topic Meningococcal B Vaccine Aged Out No l onger eligible based on patient's age to complete this topic Meningococcal Vaccine Aged Out No viji jeanie eligible based on patient's age to complete this topic RSV Immunizations Under 20 Months Aged Out No longer eligible based on patient's age to complete this topic Medical Devices Implanted Type Area Refractory Furnace Designer Device Identifier Shelf Expiration Date Model / Serial / Lot Viaflow Implanted:Qty: 1 on 07/12/2024 by Judson Jean DPM at [facility] Graft Left: Foot 11/03/2028 [id number] / [id number] / [id number] Asnis Screw Implanted:Qty: 1 on 07/12/2024 by Judson Jean DPM at [facility] Screw Left: Foot [employer] [id number] / / Easyclip Osteosynthesis Compression Staple Implanted:Qty: 1 on 07/12/2024 by Judson Jean DPM at [facility] Staple Left: Foot [employer] DIV YOVANNY CAROLINE 01/20/2029 [id number] / / [id number] Easyclip Osteosynthesis Compression Staple Implanted:Qty: 1 on 07/12/2024 by Judson Jean DPM at [facility] Staple Left: Foot [employer] DIV YOV[employer]NY CAROLINE 01/20/2029 [id number] / / [id number] Plantar Plate Repair Implant Set Implanted:Qty: 1 on 07/12/2024 by Judson Jean DPM at [facility] Left: Foot [employer] [id number] 04/11/2029 [id number] / / [id number] Insurance Care Teams Tire Buster Relationship Specialty Start Date End Date Kathy Barajas MD PCP - General 10/15/14
--- OUTSIDE RECORDS SUMMARY | 2025-03-18 13:23 | XMS_ITS | Clinical Summary ---
Author Organization [facility] Address [address] [place] [address] Care Team Providers Care Well Servicing Rig Operator Name Role Phone Unavailable Primary Care Provider Unavailabl e Allergies No known active allergies Medications potassium CHLORIDE (MICRO-K EXTENCAPS) 10 mEq Extended Release capsule 10/23/2024 Act shelby hydroCHLOROthiaz susanne 12.5 mg tablet Take 12.5 mg by mouth. Active tamoxifen (NOLVADEX) 20 mg tablet Take 1 Tablet (20 mg) by mouth daily. 90 Tablet 3 01/15/2025 Active Active Problems No known active problems Encounters Date Type Department Care Team Description 03/12/2025 External Device Data [facility] ABSTRACTION Provider, Abstract 02/05/2025 External Device Data [facility] ABSTRACTION Provider, Abstract 01/15/2025 Refill [facility] [address] [place] [address] Dutch Toure MD 01/04/2025 9:00 AM CDT Office Visit [facility] [address] [place] [address] Dutch Toure MD Malignant neoplasm of left breast in female, estrogen receptor positive, unspecified site of breast (CMS/HCC) (Primary Dx) 12/25/2024 External Device Data [facility] ABSTRACTION Provider, Abstract from Last 3 Months Family History Medical [...] Not Answered Alcohol Use Standard Drinks/Week Comments Yes 0 (1 standard drink = 0.6 oz pur e alcohol) occasional Comments Unknown Sex and Gender Information Value Date Recorded Sex Assigned at Not on file Legal Sex Female 2:24 PM CDT Gender Identity Not on file Sexual Orientation Not on file Last Filed Vital Signs Vital Sign Reading Time Taken Comments Blood Pressure 116/80 01/04/2025 8:58 AM CDT Pulse 88 01/04/2025 8:58 AM CDT Temperature 36.9 C (98.4 F) 01/04/2025 8:58 AM CDT Respiratory Rate 14 01/04/2025 8:58 AM CDT Oxygen Saturation 98% 01/04/2025 8:58 AM CDT Inhaled Oxygen Concentration - - Weight 89.8 kg (198 lb) 01/04/2025 8:58 AM CDT Height 167.6 cm (5' 6) 11/20/2024 10:27 AM CDT Body Mass Index 31.96 11/20/2024 10:27 AM CDT Plan of Treatment Upcoming Encounters Date Type Department Care Team (Late st Contact Info) Description 04/11/2025 10:00 AM HEALTH ADMINISTRATOR Office Visit [facility] [place] [address] [place] [address] [facility] [address] [place] [address] Dutch Toure MD [address] [facility] [address] [place] [address] Health Maintenance Due Date Last [...] 10/11/2023 INFLUENZA VACCINE (#1) 2024 03/22/[address] [employer] [facility] [id number]
== END ==
LOC: ANHLAB 11:43
PROVIDERS: PCP Student in an Organized Health Care Education/Training Program; Visit Provider Plastic Surgery
DX: L91.8 Other hypertrophic disorders of the skin (principal); Z90.13 Acquired absence of bilateral breasts and nipples
CPT/HCPCS: 88305

== ENCOUNTER 2025-05-20 08:04 | Outpatient (CLI) | payer OTHER, SELFPAY ==
--- NOTE | ~2025-05-20 | US_ITS ---
EXAMINATION: US pelvic complete INDICATION: Abnormal uterine bleeding Comparison:No prior studies for comparison. TECHNIQUE: Multiple transabdominal and endovaginal sonographic images of the pelvis performed. FINDINGS: The uterus measures 9.4 x 5 x 5.1 cm. The endometrial complex measures 4 mm. The right ovary measures 2 x 2.2 x 1.9 cm and the left ovary measures 4.7 x 3.7 x 4.5 cm. There is a simple cyst of the left ovary measuring 3.5 cm. There is a small paraovarian cyst in the right adnexa measuring 1.3 cm, likely of no clinical significance. There are small follicles in each ovary. Normal doppler signal in both ovaries. There is no free fluid in the pelvis. There are no abnormal masses seen on either side. IMPRESSION: 1. Simple cyst of the left ovary measuring 3.5 cm. 2: Small paraovarian cyst in the right adnexa measuring 1.3 cm. Reviewed, dictated and finalized at location O. ARCH NURSE PRACTITIONER
== END 2025-05-20 08:05 | disposition home or self-care (01) ==
LOC: MICIMG 08:05
DX: N83.202 Unspecified ovarian cyst, left side (principal); N83.291 Other ovarian cyst, right side; N93.8 Other specified abnormal uterine and vaginal bleeding
CPT/HCPCS: 76856